=== PATIENT | female | born 1965 | race Caucasian/White ===

== ENCOUNTER → 2016-11-03 | Outpatient (CLI) | payer BC ==
[~2016-11-03] MED LIST: CALC-603 PO; GRAP25CA3 PO; MAGN250T27 PO; PROBIOTICS PO; UBID10CA9 PO; [UNRECOGNIZED DRUG - CODE] SL; [UNRECOGNIZED DRUG - CODE] VG; [UNRECOGNIZED DRUG - OTHER] PO; [UNRECOGNIZED DRUG - OTHER] PO; [UNRECOGNIZED DRUG - OTHER] PO
== END ==
LOC: WC.BC 09:10
DX: Z12.31 Encounter for screening mammogram for malignant neoplasm of breast (principal)
CPT/HCPCS: 77063; G0202